=== PATIENT | female | born 1980 | race Caucasian/White ===

== ENCOUNTER 2017-05-01 17:59 | Emergency (ER) | payer OTHER, SELFPAY ==
[~2017-05-01] VITALS: Ht 162.6 cm; Wt 87.4 kg
[2017-05-01] MEDS ORDERED: VITA50TA43 PO (18:14)
[2017-05-01] MEDS ORDERED: PROG200C PO (18:14)
[2017-05-01] MEDS ORDERED: [UNRECOGNIZED DRUG - CODE] PO (18:14)
[2017-05-01] MEDS ORDERED: FLEET ENEMA PR ONE ×2 (19:45)
[2017-05-01] MEDS ORDERED: MIRALAX POWDER 255 GM BTL (POLYETHYLENE GLYCOL) PO ONE (21:00)
[2017-05-01] MEDS ORDERED: DULC10SU2 PR (21:07)
[2017-05-01] MEDS ORDERED: MIRA3350 PO (21:07)
[2017-05-01 21:24] VITALS: BP 156/82
[2017-05-01] MEDS ORDERED: MIRALAX *UNIT DOSE* 17GM PACKET PO ONE (21:30)
== END 2017-05-01 21:40 | disposition home or self-care (01) ==
LOC: M ED 17:59
DX: O99.89 Other specified diseases and conditions complicating pregnancy, childbirth and the puerperium (principal); K59.00 Constipation, unspecified; Z3A.00 Weeks of gestation of pregnancy not specified; Z79.899 Other long term (current) drug therapy